=== PATIENT | female | born 1930 | race Caucasian/White ===

== ENCOUNTER → 2018-01-28 | Outpatient (CLI) | payer MEDICARE, BC ==
--- NOTE | 2018-01-28 15:55 | XR ---
EXAMINATION TYPE: XR chest 2V DATE OF EXAM: 01/28/2018 COMPARISON: NONE HISTORY: Left-sided chest pain for 2 weeks TECHNIQUE: Frontal and lateral views of the chest are obtained. FINDINGS: Minimal platelike bibasilar subsegmental atelectasis is horizontally oriented near the cos tophrenic angles. There is no focal air space opacity, pleural effusion, or pneumothorax seen. The c ardiac silhouette size is within normal limits. The osseous structures are intact. Mild degenerativ e changes of the spine are seen. IMPRESSION: Minimal subsegmental platelike atelectasis. No focal consolidation to suggest pneumonia.
== END | disposition home or self-care (01) ==
LOC: RADXRMAIN 14:59
PROVIDERS: ATTEND Family Medicine
DX: R07.9 Chest pain, unspecified (principal)
CPT/HCPCS: 71046